=== PATIENT | male | born 1970 | race Caucasian/White ===

== ENCOUNTER 2019-05-13 18:20 | Emergency (ER) | payer OTHER ==
[2019-05-13] MEDS ORDERED: ONDANSETRON HCL IV 4 MG/2 ML VIAL IVP ONE (18:52)
[2019-05-13] MEDS ORDERED: HYOSCYAMINE SULFATE ODT 0.125 MG TAB.SUBL SL ONE (18:52)
--- NOTE | 2019-05-13 18:58 | Emergency Department Record ---
History of Present Illness - General Chief Complaint: Abdominal Pain Stated Complaint: ABD PAIN Time Seen by Provider: 05/13/19 18:43 Source: Patient Mode of Arrival: Ambulatory Limitations: No limitations - History of Present Illness Initial Comments: 48 yo male presents to ED for evaluation of intermittent episodes of loose stools (last episode was 24 hours ago), vomiting, and abdominal cramping with began 2 weeks ago. Patient reports that he did see his PCP in [place] for his symptoms, was started on lactulose for his symptoms. Patient denies fevers, chills, or recent illness. Patient denies health problems at his baseline, denies previous abdominal surgeries. MD Complaint: Abdominal pain Onset/Timin -: Week(s) Location: Diffuse Radiation: None Severity: Moderate Quality: Cramping Consistency: Intermittent Improves With: Nothing Worsens With: Nothing Associated Symptoms: Denies other symptoms - Related Data Home Medications Medication Instructions Recorded Confirmed Last Taken Lactulose 10 gm PO ASDIR 05/13/19 05/13/19 05/13/19 Previous Rx's Medication Instructions Recorded Hydrocodone/Acetaminophen [[place] 1 each PO Q6H PRN #10 tablet 05/13/19 5-325 Tablet] Ondansetron [Zofran Odt] 4 mg PO Q8H PRN #15 tab.rapdis 05/13/19 Allergies Allergy/AdvReac Type Severity Reaction Status Date / Time No Known Drug Allergies Allergy Verified 05/13/19 18:44 Review of Systems Constitutional: Denies: Chills, Fever, Malaise, Night sweats Eyes: Denies: Eye discharge, Eye pain ENT: Denies: Congestion, Ear pain, Epistaxis Respiratory: Denies: Cough, Dyspnea Cardiovascular: Denies: Chest pain, Dyspnea on exertion Endocrine: Denies: Fatigue, Heat or cold intolerance Gastrointestinal: Reports: Abdominal pain, Diarrhea, Vomiting. Denies: Consti pation, Nausea Genitourinary: Denies: Incontinence, Retention Musculoskeletal: Denies: Arthralgia, Back pain Skin: Denies: Bruising, Change in color Neurological: Denies: Abnormal gait, Confusion, Headache, Tingling, Tremors Psychiatric: Denies: Anxiety Hematological/Lymphatic: Denies: Anemia, Blood Clots Physical Exam - General General Appearance: Alert, Oriented x3, Cooperative, Moderate distress Limitations: No limitations - Head Head exam: Atraumatic, Normocephalic, Normal inspection Head exam detail: negative: Abrasion, Contusion, Oreilly's sign, General tenderness, Hematoma, Laceration - Eye Eye exam: Normal appearance. negative: Conjunctival injection, Periorbital swelling, Periorbital tenderness, Scleral icterus - ENT Ear exam: negative: Auricular hematoma, Auricular trauma Nasal Exam: negative: Active bleeding, Discharge, Dried blood, Foreign body Mouth exam: negative: Drooling, Laceration, Muffled voice, Tongue elevation - Neck Neck exam: Normal inspection. negative: Meningismus, Tenderness - Respiratory Respiratory exam: Normal lung sounds bilaterally. negative: Respiratory distress, Rhonchi, Stridor, Wheezes - Cardiovascular Cardiovascular Exam: Regular rate, Normal rhythm, Normal heart sounds - GI/Abdominal GI/Abdominal exam: Soft, Tenderness (TTP RLQ on examination, no rebound, no guarding). negative: Rebound, Rigid - Rectal Rectal exam: Deferred - exam: Deferred - Extremities Extremities exam: Normal inspection. negative: Pedal edema, Tenderness - Back Back exam: Denies: CVA tenderness (R), CVA tenderness (L) - Neurological Neurological exam: Alert, Normal gait, Oriented X3 - Psychiatric Psychiatric exam: Normal affect, Normal mood - Skin Skin exam: Normal color. negative: Abrasion Type of lesion: negative: abrasion Course - Reevaluation(s) Reevaluation #1: 05/13/19 19:32 Laboratory studies were reviewed and appear grossly unremarkable for an acute process. Reevaluation #2: 05/13/19 20:30 CT Abdomen and Pelvis: 3 cm thickened segment resulting in narrowing of the lumen suspicious for malignancy. This results in partial obstruction of the bowel with distension of the cecum and small bowel. Two hypodense lesions in the liver mario alberto indeterminate but may represent metastatic disease Small amount scites. Patient was updated on all results, discussed surgery consultation and likely transfer for further evaluation. Serena reports that he is here visiting on a business trip from [place], would like to fly back tomorrow for evaluation with his PCP near his home in [place]. Will prescribe [place] and Zofran as needed, copy of patient's CT report was given to the patient as well as all laboratory studies to take with him. Patient appears stable for discharge at this time. Medical Decision Making - Lab Data Result diagrams: 05/13/19 18:50 05/13/19 18:50 Disposition Disposition: Discharge Clinical Impression: Partial small bowel obstruction, Lesion of colon Disposition: Home, Self-Care Condition: (2) Stable Instructions: Bowel Obstruction (ED) Additional Instructions: Return to ED if your symptoms worsen or if you have any concerns. [place] and Zofran as directed. Follow-up with your family doctor in1-3 days for further evaluation of your CT findings. Prescriptions: Hydrocodone/Acetaminophen [[place] 5-325 Tablet] 1 each PO Q6H PRN #10 tablet PRN Reason: Pain - Moderate (5-7) Ondansetron [Zofran Odt] 4 mg PO Q8H PRN #15 tab.rapdis PRN Reason: Nausea/Vomiting Forms: Patient Portal Access Time of Disposition: 20:36 Quality - Quality Measures Quality Measures: N/A - Blood Pressure Screening Does Patient Have Any of the Following: No Blood Pressure Classification: Pre-Hypertensive BP Reading Systolic Measurement: 138 Diastolic Measurement: 65 Screening for High Blood Pressure: < Pre-Hypertensive BP, F/U Documented > [G8950] Pre-Hypertensive Follow-up Interventions: Referral to alternative/primary care provider.
[2019-05-13] MEDS ORDERED: 0.9 % SODIUM CHLORIDE 1000ML 1,000 ML IV SCH (19:00)
[2019-05-13 19:01] LABS: ABSOLUTE NEUTROPHIL COUNT 8.91; BASO % 0.3 % (0-6); EOS % 0.2 % (0-6); GRAN % 80.3 % (47-80); HEMATOCRIT 50.7 % (42.0-52.0); HEMOGLOBIN 17.4 gm/dl (14.0-18.0); LYMPH % 12.4 % (16-45); MEAN CELL VOLUME 90.2 fl (81-97); MEAN CORPUSCULAR HGB CONC 34.3 g/dl (32-36); MEAN PLATELET VOLUME 9.3 fl (7.4-10.4); MONO % 6.8 % (0-9); PLATELET COUNT 353 K/uL (130-400); RED BLOOD COUNT 5.62 M/uL (4.40-5.70); RED CELL DISTRIBUTION WIDTH 13.1 % (11.5-14.5); WHITE BLOOD COUNT W/O DIFF 11.1 K/uL (4.2-12.2)
[2019-05-13 19:12] LABS: BLOOD UREA NITROGEN 15 mg/dL (6-20); EST GLOMERULAR FILTRATION RATE > 60 mL/min; TOTAL PROTEIN 8.8 g/dL (6.6-8.7)
[2019-05-13 19:13] LABS: LIPASE 35 U/L (13-60)
[2019-05-13 19:14] LABS: GLUCOSE,RANDOM 115 mg/dL (74-109)
[2019-05-13 19:17] LABS: ALB/GLOB RATIO 1.5 (1.1-1.8); ALBUMIN 5.3 g/dL (4.0-5.0); ALKALINE PHOSPHATASE 59 U/L (40-129); ALT/SGPT 14 U/L (<41); AST/SGOT 23 U/L (10.0-50.0)
[2019-05-13 19:48] LABS: URINE APPEARANCE CLEAR; URINE BILIRUBIN NEGATIVE (NEGATIVE); URINE BLOOD NEGATIVE (NEGATIVE); URINE COLOR YELLOW; URINE GLUCOSE (UA) NEGATIVE (NEGATIVE); URINE KETONE 40 mg/dL (NEGATIVE); URINE LEUKOCYTE ESTERASE NEGATIVE (NEGATIVE); URINE NITRITE NEGATIVE (NEGATIVE); URINE PROTEIN NEGATIVE (NEGATIVE); URINE UROBILINOGEN 0.2 E.U./dL (0.20 - 1.00)
--- NOTE | 2019-05-13 20:09 | CT SCAN REPORT ---
EXAMINATION: CT Abdomen and Pelvis with IV Contrast EXAM DATE: 05/13/2019 7:36 PM TECHNIQUE: CT imaging of the abdomen and pelvis was performed with intravenous contrast. Coronal and sagittal images were reconstructed. IV Contrast: The amount and type of contrast are recorded in the medical record. INDICATION: RLQ abdominal pain, diarrhea COMPARISON: None ENCOUNTER: Not applicable CT ABDOMEN AND PELVIS FINDINGS: Lung Bases: Included extent of the lung bases are clear. Hepatobiliary: Approximately 13 mm hypodense lesion in the right lobe near the gallbladder fossa (2:1 63). There is also a 7 mm hypodensity in the lateral segment (2:177). The liver is normal in morpholo gy. Pancreas: The pancreas is normal. Spleen: The spleen is not enlarged. Adrenals: The adrenal glands are normal. Kidneys, Ureters, & Bladder: Both kidneys have a normal size and there is no hydronephrosis. Both ur eters have a normal caliber and the urinary bladder is unremarkable. Gastrointestinal: Approximately 3 cm segment of the proximal descending colon is concentrically thick ened with severe narrowing. There is a more nodular component at the antimesenteric border. Upstream, the colon is distended and fluid-filled. The small bowel is also fluid-filled and mildly distended to the level of the ileocecal valve. Reproductive Organs: Unremarkable Lymphatic System: There is no adenopathy within the abdomen or pelvis. Vasculature: Normal caliber abdominal aorta. Peritoneum: Small amount of ascites. No free intraperitoneal gas. Abdominal Wall & Musculoskeletal: No suspicious bone lesions. IMPRESSION: 1. In the proximal ascending colon, there is a 3 cm abnormally thickened segment causing severe cally nal narrowing, highly suspicious for malignancy. This results in at least a partial obstruction with distention of the cecum and small bowel. 2. Two small hypodense lesions in the liver are indeterminate but may represent metastatic disease. 3. Small amount of ascites. Dictated by: Rodríguez Hussein MD on 05/13/2019 7:49 PM. .
== END 2019-05-13 20:44 | disposition home or self-care (01) ==
LOC: ER 18:20
DX: K56.600 Partial intestinal obstruction, unspecified as to cause (principal); K63.89 Other specified diseases of intestine
CPT/HCPCS: 74177; 80053; 81003; 83690; 85025; 96374; 99284; J2405